=== PATIENT | male | born 1965 | race Caucasian/White ===

== ENCOUNTER 2017-02-22 12:49 | Day surgery (SDC) | payer OTHER ==
[~2017-02-22] VITALS: Ht 175.3 cm; Wt 94.5 kg
[2017-02-22 13:31] VITALS: Ht 175.3 cm; Wt 94.5 kg
[2017-02-22] MEDS ORDERED: ASPI-664 PO (13:42)
[2017-02-22] MEDS ORDERED: NAPR275T83 PO (13:42)
[2017-02-22] MEDS ORDERED: IBUP-1542 PO (13:42)
[2017-02-22 14:06] VITALS: BP 123/81; PULSE 69; RESP 21
[2017-02-22] MEDS ORDERED: PROPOFOL 20 ML ONE (14:51)
[2017-02-22] MEDS ORDERED: MIDAZOLAM 1 MG/ML 2 ML INJ ONE ×2 (14:52)
[2017-02-22] MEDS ORDERED: FENTAnyl 50 MCG/ML VIAL ONE (14:52)
[2017-02-22 16:12] VITALS: BP 107/68; PULSE 67; RESP 18
--- NOTE | 2017-02-22 18:07 | GILP ---
DATE OF PROCEDURE: NAME OF PROCEDURES: Colonoscopy and biopsy. SURGEON: Adrien Hayes MD PREOPERATIVE DIAGNOSES: Positive occult blood in stool. POSTOPERATIVE DIAGNOSES: 1. Colonoscopy all the way to the cecum. 2. Small rectal polyp was removed using the biopsy forceps. 3. Internal hemorrhoids. INDICATION FOR THE PROCEDURE: Mr. Josh Soto is a 52-year-old male patient who was noted to have positive occult blood in stool. The patient was scheduled for colonoscopy for further evaluation. The procedure and possible complications were well explained to the patient. He understood and cons ented to the procedure. DESCRIPTION OF PROCEDURE: Under the influence of anesthesia, the colonoscope was carefully introduc ed in the rectum, and under direct vision, it was advanced all the way to the cecum. FINDINGS: The patient had a small rectal polyp, and it was removed using the biopsy forceps. The p atient was noted to have internal hemorrhoids. He tolerated the procedure very well, and there was no complication from the procedure. At the end of the procedure, he was awake with stable vital signs, and he was discharged home to the care of hi s family. IMPRESSION: 1. Colonoscopy all the way to the cecum. 2. Small rectal polyp was removed using the biopsy forceps. 3. Internal hemorrhoids. PLAN: Await histopathology report. Next screening colonoscopy in 10 years. Dictated By: ADRIEN SWIFT/REMY Conf#: [id number] DID#: [id number]
== END 2017-02-22 16:13 | disposition home or self-care (01) ==
LOC: GIL 12:49
PROVIDERS: ATTEND Internal Medicine Gastroenterology
DX: K62.1 Rectal polyp (principal); K64.8 Other hemorrhoids; I10 Essential (primary) hypertension; E66.9 Obesity, unspecified; Z68.30 Body mass index [BMI] 30.0-30.9, adult
CPT/HCPCS: 45380; 88305; J2250; J3010; Z7610